=== PATIENT | female | born 1945 | race Caucasian/White ===

== ENCOUNTER 2016-08-14 10:56 | Outpatient (CLI) | payer MEDICARE ==
[2016-08-14 12:36] LABS: Anion Gap 13 mmol/L (10-20); BUN (Urea Nitrogen) 26 mg/dL (9.8-20.1); Calc. Creatinine Clearance 0 mL/min (70-130); Calcium 9.4 mg/dL (7.8-10.44); Carbon Dioxide 27 mmol/L (23-31); Chloride 102 mmol/L (98-107); Estimated GFR-MDRD 40
== END 2016-08-14 10:57 | disposition home or self-care (01) ==
LOC: NAV LABSP 10:56
PROVIDERS: ATTEND Internal Medicine Nephrology
DX: N18.3 Chronic kidney disease, stage 3 (moderate) (principal)
CPT/HCPCS: 36415; 80048

== ENCOUNTER 2016-09-01 10:47 | Outpatient (CLI) | payer MEDICARE ==
[2016-09-01 13:08] LABS: Hemoglobin A1c 9.6 % (4.0-6.0)
== END 2016-09-01 10:48 ==
LOC: NAVSJIPCSP 10:47
PROVIDERS: ATTEND Internal Medicine
DX: E78.5 Hyperlipidemia, unspecified (principal); E11.65 Type 2 diabetes mellitus with hyperglycemia; Z79.899 Other long term (current) drug therapy
CPT/HCPCS: 36415; 80061; 83036

== ENCOUNTER 2016-09-16 09:06 | Outpatient (CLI) | payer MEDICARE ==
--- NOTE | 2016-09-16 12:03 | ULT ---
ABDOMINAL ULTRASOUND: History: Abdominal pain, more right sided. FINDINGS: Exam is technically difficult due to body habitus. The gallbladder is slightly distended. There are no signs of gallstones. The common duct is in the 6-7 mm range. Visualized liver parenchyma is of mild increased echogenicity. The spleen measures 10 cm in length. The pancreas is obscured as are portions of the abdominal aorta and IVC. Right an d left kidneys are normal in size and not obstructed. IMPRESSION: Unremarkable abdominal ultrasound. POS: [facility]
== END 2016-09-16 09:07 | disposition home or self-care (01) ==
LOC: NAV ULT 09:06
PROVIDERS: ATTEND Internal Medicine
DX: R10.9 Unspecified abdominal pain (principal)
CPT/HCPCS: 76700

== ENCOUNTER 2016-12-10 10:10 | Outpatient (CLI) | payer MEDICARE ==
[2016-12-10 12:32] LABS: #Eosinphils 0.1 thou/uL (0.0-0.7); #Lymphocytes 1.3 thou/uL (1.20-3.40); #Monocytes 0.4 thou/uL (0.11-0.59); #Neutrophils 2.8 thou/uL (1.40-6.50); %Basophils 0.9 % (0.0-1.0); %Eosinophils 2.9 % (0.0-10.0); %Lymphocytes 27.9 % (21.0-51.0); %Monocytes 8.1 % (0.0-10.0); %Neutrophils 60.3 % (42.0-75.0); Hemoglobin 9.3 g/dL (12.0-16.0); Mean Corpuscular HGB CONC 30.1 g/dL (32.0-36.0); Mean Corpuscular Hemoglobin 27.9 pg (27.0-31.0); Mean Corpuscular Volume 92.7 fl (81.0-99.0); Mean Platelet Volume 6.6 fL (7.4-10.4); Platelet Count 162 thou/uL (130-400); RBC Distribution Width 13.6 % (11.5-14.5); Red Blood Cell (RBC) Count 3.33 mill/uL (4.20-5.40); White Blood Cell (WBC) Count 4.6 thou/uL (4.8-10.8)
[2016-12-10 12:43] LABS: ALT (SGPT) 14 U/L (8-55); AST (SGOT) 18 U/L (5-34); Albumin 3.7 g/dL (3.4-4.8); Alkaline Phosphatase 85 U/L (40-150); Anion Gap 15 mmol/L (10-20); BUN (Urea Nitrogen) 48 mg/dL (9.8-20.1); Bilirubin, Total 0.2 mg/dL (0.2-1.2); Calc. Creatinine Clearance 0 mL/min (70-130); Calcium 9.1 mg/dL (7.8-10.44); Carbon Dioxide 23 mmol/L (23-31); Cardiac Risk 2.3 (Less than 4.5); Chloride 104 mmol/L (98-107); Cholesterol 108 mg/dl (< 200 Desired); Estimated GFR-MDRD 27; Globulin 2.9 g/dL (2.4-3.5); Glucose 72 mg/dL (83-110); HDL Cholesterol 48 mg/dL (>60 Neg Risk); LDL Cholesterol, Calculated 44 mg/dL; Potassium 5.2 mmol/L (3.5-5.1); Protein, Total 6.6 g/dL (6.0-8.3); Sodium 137 mmol/L (136-145); Triglycerides 80 mg/dL (Less than 150)
[2016-12-10 12:54] LABS: Hemoglobin A1c 8.9 % (4.0-6.0)
== END 2016-12-10 10:11 ==
LOC: NAVSJIPCSP 10:10
PROVIDERS: ATTEND Internal Medicine
DX: Z12.11 Encounter for screening for malignant neoplasm of colon (principal); E78.5 Hyperlipidemia, unspecified; E03.9 Hypothyroidism, unspecified; E11.65 Type 2 diabetes mellitus with hyperglycemia; Z79.899 Other long term (current) drug therapy
CPT/HCPCS: 36415; 80053; 80061; 83036; 85025

== ENCOUNTER 2016-12-17 10:01 | Outpatient (CLI) | payer MEDICARE ==
[2016-12-17 14:19] LABS: Bilirubin Negative (Negative); Blood, Urine Trace (Negative); Clarity Slightly Cloudy (Clear); Glucose, Urine (Dipstick) Negative (Negative); Leukocyte Trace (Negative); Nitrite Negative (Negative); Protein, Urine (Dipstick) 30 mg/dL (Neg-Trace); Urobilinogen 0.2 mg/dL (0.2-1.0); pH, Urine 6.5 (5.0-9.0)
[2016-12-17 14:45] LABS: Bacteria/HPF 4+ HPF (None Seen); RBC/HPF None Seen HPF (0-3); Squamous Epithelial 0-3 HPF (0-3); WBC/HPF 0-3 HPF (0-3)
[2016-12-17 18:12] LABS: Creatinine, Urine 31.86 mg/dL (47-110); Microalbumin/Creat Ratio 345.3 mg/g (Less than 30)
== END 2016-12-17 10:02 | disposition home or self-care (01) ==
LOC: NAVSJIPCSP 10:01
PROVIDERS: ATTEND Internal Medicine
DX: Z12.11 Encounter for screening for malignant neoplasm of colon (principal); E03.9 Hypothyroidism, unspecified; E78.5 Hyperlipidemia, unspecified; E11.65 Type 2 diabetes mellitus with hyperglycemia; Z79.899 Other long term (current) drug therapy
CPT/HCPCS: 81015; 82043; 82274

== ENCOUNTER 2017-01-18 11:13 | Outpatient (CLI) | payer MEDICARE ==
[2017-01-18 14:14] LABS: #Eosinphils 0.1 thou/uL (0.0-0.7); #Lymphocytes 0.8 thou/uL (1.20-3.40); #Monocytes 0.4 thou/uL (0.11-0.59); #Neutrophils 3.5 thou/uL (1.40-6.50); %Basophils 0.5 % (0.0-1.0); %Eosinophils 1.4 % (0.0-10.0); %Monocytes 7.3 % (0.0-10.0); %Neutrophils 74.8 % (42.0-75.0); Hemoglobin 8.3 g/dL (12.0-16.0); Mean Corpuscular HGB CONC 31.9 g/dL (32.0-36.0); Mean Corpuscular Hemoglobin 29.6 pg (27.0-31.0); Mean Platelet Volume 6.6 fL (7.4-10.4); Platelet Count 141 thou/uL (130-400); RBC Distribution Width 14.2 % (11.5-14.5); Red Blood Cell (RBC) Count 2.79 mill/uL (4.20-5.40); White Blood Cell (WBC) Count 4.7 thou/uL (4.8-10.8)
[2017-01-18 14:45] LABS: ALT (SGPT) 10 U/L (8-55); AST (SGOT) 18 U/L (5-34); Albumin 3.6 g/dL (3.4-4.8); Alkaline Phosphatase 119 U/L (40-150); Anion Gap 16 mmol/L (10-20); BUN (Urea Nitrogen) 72 mg/dL (9.8-20.1); Bilirubin, Total 0.4 mg/dL (0.2-1.2); Calc. Creatinine Clearance 0 mL/min (70-130); Calcium 8.7 mg/dL (7.8-10.44); Carbon Dioxide 22 mmol/L (23-31); Chloride 102 mmol/L (98-107); Estimated GFR-MDRD 20; Globulin 2.8 g/dL (2.4-3.5); Glucose 220 mg/dL (83-110); Potassium 5.8 mmol/L (3.5-5.1); Protein, Total 6.4 g/dL (6.0-8.3); Sodium 134 mmol/L (136-145)
== END 2017-01-18 11:14 ==
LOC: NAVSJIPCSP 11:13
PROVIDERS: ATTEND Internal Medicine
DX: E11.22 Type 2 diabetes mellitus with diabetic chronic kidney disease (principal); E11.65 Type 2 diabetes mellitus with hyperglycemia; N18.3 Chronic kidney disease, stage 3 (moderate); Z79.899 Other long term (current) drug therapy
CPT/HCPCS: 36415; 80053; 85025

== ENCOUNTER 2017-02-02 13:23 | Outpatient (CLI) | payer MEDICARE ==
[2017-02-02 17:27] LABS: Hemoglobin 8.3 g/dL (12.0-16.0); Mean Corpuscular HGB CONC 30.2 g/dL (32.0-36.0); Mean Corpuscular Hemoglobin 28.1 pg (27.0-31.0); Mean Corpuscular Volume 93.3 fl (81.0-99.0); Mean Platelet Volume 6.1 fL (7.4-10.4); Platelet Count 146 thou/uL (130-400); RBC Distribution Width 14.4 % (11.5-14.5); Red Blood Cell (RBC) Count 2.95 mill/uL (4.20-5.40); White Blood Cell (WBC) Count 4.5 thou/uL (4.8-10.8)
[2017-02-02 17:34] LABS: Anion Gap 14 mmol/L (10-20); BUN (Urea Nitrogen) 48 mg/dL (9.8-20.1); Calc. Creatinine Clearance 0 mL/min (70-130); Calcium 8.9 mg/dL (7.8-10.44); Carbon Dioxide 27 mmol/L (23-31); Chloride 101 mmol/L (98-107); Estimated GFR-MDRD 25; Glucose 89 mg/dL (83-110); Potassium 5.1 mmol/L (3.5-5.1); Sodium 137 mmol/L (136-145)
[2017-02-03 17:57] LABS: Creatinine, Urine 190.74 mg/dL (47-110)
== END 2017-02-02 13:24 | disposition home or self-care (01) ==
LOC: NAV LABSP 13:23
PROVIDERS: ATTEND Internal Medicine Nephrology
DX: E11.22 Type 2 diabetes mellitus with diabetic chronic kidney disease (principal); N18.3 Chronic kidney disease, stage 3 (moderate); R80.9 Proteinuria, unspecified
CPT/HCPCS: 80048; 82306; 82570; 83970; 84156; 85027

== ENCOUNTER 2017-03-16 16:08 | Outpatient (CLI) | payer MEDICARE ==
[2017-03-16 16:40] LABS: Hemoglobin 9.4 g/dL (12.0-16.0); Mean Corpuscular HGB CONC 30.4 g/dL (32.0-36.0); Mean Corpuscular Hemoglobin 28.5 pg (27.0-31.0); Mean Corpuscular Volume 93.8 fl (81.0-99.0); Mean Platelet Volume 6.1 fL (7.4-10.4); Platelet Count 166 thou/uL (130-400); White Blood Cell (WBC) Count 6.6 thou/uL (4.8-10.8)
[2017-03-16 16:48] LABS: Anion Gap 18 mmol/L (10-20); BUN (Urea Nitrogen) 47 mg/dL (9.8-20.1); Calc. Creatinine Clearance 0 mL/min (70-130); Calcium 9.6 mg/dL (7.8-10.44); Carbon Dioxide 27 mmol/L (23-31); Chloride 94 mmol/L (98-107); Estimated GFR-MDRD 21; Glucose 384 mg/dL (83-110); Sodium 134 mmol/L (136-145)
[2017-03-17 18:17] LABS: Creatinine, Urine 24.06 mg/dL (47-110); Iron 42 ug/dL (50-170); Iron Binding Capacity, Total 329 mcg/dL (265-497)
[2017-03-19 11:00] LABS: Follow-up Chemistry Comp? YES
== END 2017-03-16 16:09 | disposition home or self-care (01) ==
LOC: NAV LABSP 16:08
PROVIDERS: ATTEND Internal Medicine Nephrology
DX: I13.0 Hypertensive heart and chronic kidney disease with heart failure and stage 1 through stage 4 chronic kidney disease, or unspecified chronic kidney disease (principal); E11.22 Type 2 diabetes mellitus with diabetic chronic kidney disease; N18.3 Chronic kidney disease, stage 3 (moderate); D63.1 Anemia in chronic kidney disease; R80.9 Proteinuria, unspecified; N25.81 Secondary hyperparathyroidism of renal origin
CPT/HCPCS: 36415; 80048; 82570; 82728; 83540; 83550; 83970; 84156; 85027

== ENCOUNTER 2017-03-18 08:34 | Emergency (ER) | payer MEDICARE ==
[2017-03-18] MEDS ORDERED: HYDROcodone/Acetaminophen 10/325 mg Tablet ONE (09:31)
[2017-03-18 09:46] LABS: ALT (SGPT) 13 U/L (8-55); AST (SGOT) 12 U/L (5-34); Albumin 3.6 g/dL (3.4-4.8); Alkaline Phosphatase 119 U/L (40-150); Anion Gap 14 mmol/L (10-20); BUN (Urea Nitrogen) 47 mg/dL (9.8-20.1); Bilirubin, Total 0.3 mg/dL (0.2-1.2); Calc. Creatinine Clearance 0 mL/min (70-130); Calcium 9.2 mg/dL (7.8-10.44); Carbon Dioxide 28 mmol/L (23-31); Chloride 100 mmol/L (98-107); Estimated GFR-MDRD 24; Globulin 3.2 g/dL (2.4-3.5); Glucose 258 mg/dL (83-110); Potassium 4.7 mmol/L (3.5-5.1); Protein, Total 6.8 g/dL (6.0-8.3); Sodium 137 mmol/L (136-145)
[2017-03-18 09:50] LABS: Hemoglobin 8.2 g/dL (12.0-16.0); MDiff Complete? YES; Mean Corpuscular HGB CONC 30.3 g/dL (32.0-36.0); Mean Corpuscular Hemoglobin 27.7 pg (27.0-31.0); Mean Corpuscular Volume 91.3 fl (81.0-99.0); Mean Platelet Volume 6.8 fL (7.4-10.4); RBC Distribution Width 13.6 % (11.5-14.5); Red Blood Cell (RBC) Count 2.96 mill/uL (4.20-5.40); White Blood Cell (WBC) Count 5.1 thou/uL (4.8-10.8)
[2017-03-18 09:51] LABS: Anisocytosis SLIGHT = 6-15 cells (100X) (0-5/hpf); Band 1 % (5-11); Hypochromia SLIGHT = 6-15 cells (100X) (0-5/hpf); Lymphocytes 18 % (21-51); Monocytes 9 % (0-10); Neutrophil 72 % (42-75); PLT Morphology Comment Appears Decreased
[2017-03-18 10:16] LABS: Platelet Count 153 thou/uL (130-400)
[2017-03-18] MEDS ORDERED: Ciprofloxacin Lactate/D5W 400 mg/200 ml Premix ONE (10:44)
[2017-03-18] MEDS ORDERED: Ondansetron HCl/PF 4 MG/2 ML Vial ONE (10:45)
--- NOTE | 2017-03-18 11:14 | CT ---
HEAD CT WITHOUT CONTRAST: DATE: 03/18/17. COMPARISON: 05/16/12. HISTORY: Worsening right-sided ear pain. TECHNIQUE: Serial axial CT imaging is obtained at 5 mm intervals from the vertex through the skull base without contrast. FINDINGS: The imaged paranasal sinuses appear grossly unremarkable. There are a few opacified mastoid air cell s seen on the right, new. There is abnormal mucosal thickening involving the region of the external auditory canal, not seen o n the prior examination, suspicious for external auditory canal inflammatory change. No discrete fl uid collection is seen in this region. No acute osseous abnormality is seen. No intracranial hemor rhage, midline shift, mass effect, or ventricular enlargement. IMPRESSION: New mucosal thickening involving the external auditory canal. Findings may be related to otitis ext ernal in the proper clinical setting. There is no drainable fluid collection seen. A few opacified mastoid air cells are noted on the right which may signify a degree of mastoiditis in the proper cl inical setting. POS: [facility]
[2017-03-18] MEDS ORDERED: diphenhydrAMINE HCl 50 MG/ML 1 ML VIAL ONE (11:28)
[2017-03-18] MEDS ORDERED: Sodium Chloride 0.9% 250 ML 250 ML ONE (12:00)
== END 2017-03-18 13:52 | disposition short-term general hospital (02) ==
LOC: NAV ERS 08:34
DX: H60.21 Malignant otitis externa, right ear (principal); H70.001 Acute mastoiditis without complications, right ear; D64.9 Anemia, unspecified; I12.9 Hypertensive chronic kidney disease with stage 1 through stage 4 chronic kidney disease, or unspecified chronic kidney disease; E11.65 Type 2 diabetes mellitus with hyperglycemia; E11.22 Type 2 diabetes mellitus with diabetic chronic kidney disease; N18.9 Chronic kidney disease, unspecified; E66.9 Obesity, unspecified; J45.909 Unspecified asthma, uncomplicated; Z79.84 Long term (current) use of oral hypoglycemic drugs; Z79.899 Other long term (current) drug therapy
CPT/HCPCS: 36415; 70450; 80053; 82010; 85025; 85652; 96365; 96366; 96367; 96375; J0744; J1200; J2270; J2405; J3370; J7050

== ENCOUNTER 2017-08-04 10:40 | Emergency (ER) | payer MEDICARE ==
[2017-08-04] MEDS ORDERED: HYDROcodone/Acetaminophen 5/325 mg Tablet ONE (11:49)
[2017-08-04] MEDS ORDERED: Ondansetron ODT 4 MG TAB ONE (11:49)
[2017-08-04] MEDS ORDERED: Carvedilol 3.125 MG TAB ONE (11:52)
[2017-08-04 12:10] LABS: #Lymphocytes 0.4 thou/uL (1.20-3.40); #Monocytes 0.4 thou/uL (0.11-0.59); %Basophils 0.9 % (0.0-1.0); %Eosinophils 0.9 % (0.0-10.0); %Monocytes 7.4 % (0.0-10.0); %Neutrophils 81.9 % (42.0-75.0); Hemoglobin 9.2 g/dL (12.0-16.0); Mean Corpuscular HGB CONC 31.4 g/dL (32.0-36.0); Mean Corpuscular Hemoglobin 28.4 pg (27.0-31.0); Mean Corpuscular Volume 90.5 fl (81.0-99.0); Mean Platelet Volume 7.8 fL (7.4-10.4); Platelet Count 133 thou/uL (130-400); RBC Distribution Width 14.4 % (11.5-14.5); Red Blood Cell (RBC) Count 3.22 mill/uL (4.20-5.40); White Blood Cell (WBC) Count 4.9 thou/uL (4.8-10.8)
[2017-08-04 12:25] LABS: ALT (SGPT) 13 U/L (8-55); AST (SGOT) 17 U/L (5-34); Albumin 3.8 g/dL (3.4-4.8); Alkaline Phosphatase 78 U/L (40-150); Anion Gap 14 mmol/L (10-20); BUN (Urea Nitrogen) 40 mg/dL (9.8-20.1); Bilirubin, Total 0.4 mg/dL (0.2-1.2); CKMB 2.3 ng/mL (0-6.6); Calc. Creatinine Clearance 0 mL/min (70-130); Calcium 9.8 mg/dL (7.8-10.44); Carbon Dioxide 30 mmol/L (23-31); Chloride 99 mmol/L (98-107); Estimated GFR-MDRD 31; Glucose 257 mg/dL (83-110); Potassium 4.9 mmol/L (3.5-5.1); Protein, Total 6.8 g/dL (6.0-8.3); Sodium 138 mmol/L (136-145); Troponin I 0.016 ng/mL (< 0.028)
--- NOTE | 2017-08-04 13:06 | RAD ---
PORTABLE CHEST ONE VIEW: 08/04/2017 12:26 p.m. HISTORY: Chest pain. FINDINGS: The heart size is enlarged. There is pulmonary vascular congestion. No pneumothoraces, lobar consol idation, or large effusions are seen. IMPRESSION: Mild congestive heart failure. POS: [facility]
[2017-08-04] MEDS ORDERED: Sodium Chloride 0.9% 500 ML ONE (13:22)
--- NOTE | 2017-08-04 15:33 | CT ---
CT ARTERIOGRAM CHEST WITH IV CONTRAST AND 3D MIP IMAGING 08/04/17 HISTORY: Chest pain. COMPARISON: 12/17/10. FINDINGS: There is good contrast opacification of the pulmonary arteries and thoracic aorta with normal branchi ng of the great vessels. Mild atelectasis is present at each lung base. No pleural fluid, pneumothora x or mediastinal adenopathy are evident. IMPRESSION: No CT evidence of pulmonary embolus. POS: [facility]
== END 2017-08-04 15:45 | disposition home or self-care (01) ==
LOC: NAV ERS 10:40
DX: R07.89 Other chest pain (principal); R05 Cough; I13.0 Hypertensive heart and chronic kidney disease with heart failure and stage 1 through stage 4 chronic kidney disease, or unspecified chronic kidney disease; N18.9 Chronic kidney disease, unspecified; I50.9 Heart failure, unspecified; J45.909 Unspecified asthma, uncomplicated; E11.9 Type 2 diabetes mellitus without complications; Z79.899 Other long term (current) drug therapy
CPT/HCPCS: 36415; 71045; 71275; 80053; 82553; 83880; 84484; 85025; 85379; 93005; 96360; J7050; Q0162

== ENCOUNTER 2017-08-12 10:11 | Emergency (ER) | payer MEDICARE ==
--- NOTE | 2017-08-12 11:18 | RAD ---
CHEST PA AND LATERAL: History: 72-year-old female with chest pain and cough. Comparison: 08-04-17 FINDINGS: Less than optimal inspiration with minimal cardiomegaly and bilateral vascular congestion. No conflue nt pneumonia, overt edema, or pleural effusions. Stable from prior study. IMPRESSION: Stable mild cardiomegaly and vascular congestion. No significant acute process. Stable from prior yulissa dy. POS: [facility]
[2017-08-12] MEDS ORDERED: predniSONE 20 MG TAB ONE (11:32)
== END 2017-08-12 11:38 | disposition home or self-care (01) ==
LOC: NAV ERS 10:11
DX: J40 Bronchitis, not specified as acute or chronic (principal); E11.9 Type 2 diabetes mellitus without complications; I10 Essential (primary) hypertension; E66.9 Obesity, unspecified; Z79.84 Long term (current) use of oral hypoglycemic drugs; Z79.899 Other long term (current) drug therapy
CPT/HCPCS: 71046; J7506

== ENCOUNTER 2017-09-29 09:52 | Outpatient (CLI) | payer MEDICARE | END 2017-09-29 09:53 | disposition home or self-care (01) | LOC: NAV ULT 09:52 | PROVIDERS: ATTEND Internal Medicine | DX: R60.0 Localized edema (principal); G47.30 Sleep apnea, unspecified; I08.1 Rheumatic disorders of both mitral and tricuspid valves | CPT/HCPCS: 93306 ==

== ENCOUNTER 2018-08-01 11:55 | Emergency (ER) | payer MEDICARE ==
--- NOTE | 2018-08-01 14:49 | RAD ---
CHEST 2 VIEWS: Date: 08/01/18 HISTORY: Chest pain. COMPARISON: 08/12/17. FINDINGS: Cardiac silhouette is upper limits of normal. Pulmonary vasculature remains slightly engorged with wi despread reticulonodular interstitial prominence, similar in appearance to the prior exam. Mediastinu m is midline. No lobar consolidation, pneumothorax, or pleural fluid. IMPRESSION: Chronic appearing CHF. Stable compared to exam from 1 year ago. POS: [facility]
== END 2018-08-01 13:22 | disposition home or self-care (01) ==
LOC: NAV ERS 11:55
DX: J32.9 Chronic sinusitis, unspecified (principal); E11.9 Type 2 diabetes mellitus without complications; I10 Essential (primary) hypertension; E66.9 Obesity, unspecified; J45.909 Unspecified asthma, uncomplicated; Z79.899 Other long term (current) drug therapy
CPT/HCPCS: 71046

== ENCOUNTER 2018-08-07 02:43 | Emergency (ER) | payer MEDICARE ==
[2018-08-07 03:34] LABS: #Basophils 0.1 thou/uL (0.0-0.2); #Eosinphils 0.1 thou/uL (0.0-0.7); #Lymphocytes 1.2 thou/uL (1.20-3.40); #Monocytes 0.4 thou/uL (0.11-0.59); #Neutrophils 3.5 thou/uL (1.40-6.50); %Basophils 1.5 % (0.0-1.0); %Eosinophils 1.9 % (0.0-10.0); %Lymphocytes 22.8 % (21.0-51.0); %Monocytes 6.9 % (0.0-10.0); Mean Corpuscular Hemoglobin 26.3 pg (27.0-31.0); Mean Platelet Volume 7.6 fL (7.4-10.4); Platelet Count 159 thou/uL (130-400); Red Blood Cell (RBC) Count 3.03 mill/uL (4.20-5.40); White Blood Cell (WBC) Count 5.2 thou/uL (4.8-10.8)
[2018-08-07 03:55] LABS: ALT (SGPT) 13 U/L (8-55); AST (SGOT) 25 U/L (5-34); Albumin 3.7 g/dL (3.4-4.8); Alkaline Phosphatase 117 U/L (40-150); Anion Gap 14 mmol/L (10-20); BUN (Urea Nitrogen) 47 mg/dL (9.8-20.1); Bilirubin, Total 0.3 mg/dL (0.2-1.2); Calc. Creatinine Clearance 0 mL/min (70-130); Calcium 9.6 mg/dL (7.8-10.44); Carbon Dioxide 26 mmol/L (23-31); Chloride 98 mmol/L (98-107); Estimated GFR-MDRD 20; Globulin 3.8 g/dL (2.4-3.5); Glucose 249 mg/dL (83-110); Potassium 5.2 mmol/L (3.5-5.1); Protein, Total 7.5 g/dL (6.0-8.3); Sodium 133 mmol/L (136-145)
[2018-08-07] MEDS ORDERED: HYDROcodone/Acetaminophen 10/325 mg Tablet ONE (04:10)
--- NOTE | 2018-08-07 08:43 | RAD ---
RIGHT KNEE 4 VIEWS: Date: 08/07/18 INDICATION: Right knee pain. COMPARISON: None. FINDINGS: There is advanced osteoarthrosis of the right knee. There is healed deformity involving the supracond ylar right femur with associated retrograde nail. There is diffuse osteopenia. IMPRESSION: 1. Severe osteoarthrosis of the right knee. 2. Healed instrumented distal right femoral fracture. POS: [facility]
== END 2018-08-07 04:38 | disposition short-term general hospital (02) ==
LOC: NAV ERS 02:43
DX: M79.604 Pain in right leg (principal); I10 Essential (primary) hypertension; E11.9 Type 2 diabetes mellitus without complications; J45.909 Unspecified asthma, uncomplicated; E66.9 Obesity, unspecified; Z79.51 Long term (current) use of inhaled steroids; Z79.899 Other long term (current) drug therapy; Z79.891 Long term (current) use of opiate analgesic
CPT/HCPCS: 36415; 80053; 85025; 85379

== ENCOUNTER 2018-09-01 10:07 | Emergency (ER) | payer MEDICARE | END 2018-09-01 12:52 | disposition E | LOC: NAV ERS 10:07 | DX: I46.9 Cardiac arrest, cause unspecified (principal); E66.9 Obesity, unspecified; I10 Essential (primary) hypertension; E11.9 Type 2 diabetes mellitus without complications | CPT/HCPCS: 92950; 96374; 96375 ==